=== PATIENT | female | born 1995 | race Caucasian/White ===

== ENCOUNTER 2020-11-03 03:38 | Inpatient (IN) | payer OTHER ==
[2020-11-03] VITALS (24 sets, daily range): BP systolic 90–181; BP diastolic 51–88; PULSE 68–126; TEMP 97.9–99.1
[~2020-11-03] VITALS: Ht 172.7 cm; Wt 105.9 kg
--- NOTE | 2020-11-03 03:26 | NUR ---
Ambulatory to unit for assessment of ?SROM, accompanied by spouse. Pt reports "my water broke @ 0200". Oriented to room, monitor, plan of care.
[2020-11-03 05:01] LABS: BASO % 0.3 % (0.0-2.0); EOS % 0.3 % (0-4.0); GRAN # 5.3 (1.4-6.5); GRAN % 67.4 % (42.2-75.2); HEMOGLOBIN 12.6 g/dl (12.5-16.0); LYMPH # 1.8 (1.2-3.4); LYMPH % 22.9 % (20.0-51.0); MEAN CELL VOLUME 87 fl (80.0-100.0); MEAN CORPUSCULAR HEMOGLOBIN 30 pg (27.0-31.0); MEAN CORPUSCULAR HGB CONC 34 g/dl (33.0-37.0); MEAN PLATELET VOLUME 10.7 fl (7.4-10.4); MONO # 0.7 (0.1-0.6); MONO % 8.6 % (1.7-9.3); PLATELET COUNT 257 K/mm3 (130-400); RED BLOOD COUNT 4.21 M/mm3 (4.10-5.30); REDCELL DISTRIBUTION WIDTH-CV 13.3 % (11.5-14.5)
[2020-11-03 05:02] LABS: HEMATOCRIT 36.7 % (37.0-47.0)
--- NOTE | 2020-11-03 06:25 | NUR ---
Nikhil RN gives report and This RN at bedside and patient back on monitors at this time. Patient resting and has no needs at this time. 0655: Patient off monitors to ambulate at this time. Dr. Matos at nurses station and updating Roles on this patient. 0745: Patient back on monitors. Wedged left with peanut ball in place. 0830: Roles at bedside and assessing patient and FHR strip. Plan of care discussed. SVE per physician 4-5//-2 and no new orders given.
--- NOTE | 2020-11-03 09:20 | NUR ---
Patient back on monitors. 0952: Patient off monitors to ambulate. 1047: Patient back on monitors for intermittent monitoring. 1126: Patient off monitors to ambulate/sit on birthing ball. 1225: Roles at bedside evaluating patient and FHR strip. SVE-5//-2 and plan of care discussed. No new orders at this time. 1255: Patient off monitors for ambulation. 1357: Patient back on monitors. SVE-6-7//-1 1416: Patient off monitors for ambulation and birthing ball. 1457: Patient back on monitors. 1520: Patient off monitors for ambulation/birthing ball. 1605: SVE-8//-1 and patient back on birthing ball. 1630: Patient feeling more pressure. SVE 8//-1 and off monitors to void/ambulate.
[2020-11-03] MEDS ORDERED: PRENATAL TABLET PO (16:09)
[2020-11-03] MEDS ORDERED: BENADRYL25 M2 PO (16:09)
[2020-11-03] MEDS ORDERED: PROBIOTIC BLEN1 EACH PO (16:10)
[2020-11-03] MEDS ORDERED: CALCIUM 600MG+D1 TAB PO (16:10)
[2020-11-03] MEDS ORDERED: OMEGA-3 1000 MG1 CAP PO (16:10)
--- NOTE | 2020-11-03 18:00 | NUR ---
SVE-/-1 181: Patient back on monitor at this time. 182: Roles at bedside and SVE per physician /+2 and patient practice pushing. 1827: Pushing instructions discussed and patient begins to push with each contraction. Roles at nurses station. Bedside report given to Teresa RIOS at this time.
--- NOTE | 2020-11-03 18:30 | NUR ---
Report recieved from Shalom RIOS. This RN continues pushing with pt. Questions answered. remains at nurses station reviewing FHR strip. 1911: at nurses station and requested for delivery. Pt prepped for delivery and repositioned to footplates. Pt continues pushing with . 1918: Pulse ox applied to mom to verify FHTs. Audible FHR 130BPM, moms heart rate 120s. reviewes FHR strip at pts bedside. 1928: Spontaneous vaginal delivery of viable male by . to mothers chest where dried and stimulated by nursery RN. Pt requesting prolonged cord clamping. Care of infant assummed by Julian RIOS. 1933: Cord clamped X2 and cut by FOB. Straight Cath completed due to increased bleeding. 1937: Spontaneous delivery of intact placenta by . Pitocin started at 333mus/hr per protocol. Fundal message completed by provider. Lidocaine administered by provider to repair tear. Second degree laceration repaired by . 1941: Increased bleeding noted during repair. Methergine explained and administered per orders. 1954: Repair completed and pericare provided. Ice pack applied and pt repositoined in bed. Plan of care and safety precautions explained. Questions answered. Call light within reach.
[2020-11-04 03:15] VITALS: BP 126/69; PULSE 114; TEMP 98.1
[2020-11-04 07:23] VITALS: BP 125/54; PULSE 102; TEMP 98.7
--- NOTE | 2020-11-04 10:15 | NUR ---
Initial visit attempt; Family resting, Nuclear Equipment Sales Engineer left card of congratulations and God's blessings for the of their son and information regarding the availability of spiritual care at [place].
[2020-11-04 11:00] VITALS: BP 124/68; PULSE 88; TEMP 98.3
[2020-11-04 15:14] VITALS: BP 118/72; PULSE 98; TEMP 98.6
--- NOTE | 2020-11-04 15:31 | NUR ---
Reviewed COVID19 test with patient, patient refuses test.
[2020-11-04 22:00] VITALS: BP 122/65; PULSE 94; TEMP 97.5
[2020-11-05] MEDS ORDERED: IBU600 MG PO (08:30)
[2020-11-05 08:45] VITALS: BP 122/69; PULSE 101; TEMP 97.6
== END 2020-11-05 11:20 | disposition home or self-care (01) | DRG 806 ==
LOC: LDRO 03:38 → LDR 03:42 → OB 03:42
PROVIDERS: ADMIT Obstetrics & Gynecology
PROC: 10E0XZZ Delivery of Products of Conception, External Approach (ICD-10-PCS; principal; 2020-11-03)
PROC: 0KQM0ZZ Repair Perineum Muscle, Open Approach (ICD-10-PCS; 2020-11-03)
DX: O70.1 Second degree perineal laceration during delivery (principal); O72.1 Other immediate postpartum hemorrhage; Z37.0 Single live birth; Z3A.39 39 weeks gestation of pregnancy
CPT/HCPCS: J2210; J2590; J7120

== ENCOUNTER 2022-01-21 15:56 | Inpatient (IN) | payer OTHER ==
[~2022-01-21] VITALS: Ht 167.6 cm; Wt 102.7 kg
[2022-01-21] VITALS (9 sets, daily range): BP systolic 112–124; BP diastolic 57–81; PULSE 68–122; TEMP 98.1–98.4
[~2022-01-21 15:56] MED LIST: BENADRYL25 M2 PO; CALCIUM 600MG+D1 TAB PO; IBU600 MG PO; OMEGA-3 1000 MG1 CAP PO; PRENATAL TABLET PO; PROBIOTIC BLEN1 EACH PO
[2022-01-21 16:29] LABS: BASO % 0.2 % (0.0-2.0); GRAN # 9.4 K/mm3 (1.4-6.5); GRAN % 83.5 % (42.2-75.2); HEMATOCRIT 38.5 % (37.0-47.0); HEMOGLOBIN 13.1 g/dl (12.5-16.0); LYMPH # 1.1 K/mm3 (1.2-3.4); LYMPH % 9.4 % (20.0-51.0); MEAN CELL VOLUME 89 fl (80.0-100.0); MEAN CORPUSCULAR HEMOGLOBIN 30 pg (27-31); MEAN CORPUSCULAR HGB CONC 34 g/dl (33.0-37.0); MEAN PLATELET VOLUME 10.2 fl (7.4-10.4); MONO # 0.7 K/mm3 (0.1-0.6); MONO % 6.5 % (1.7-9.3); PLATELET COUNT 221 K/mm3 (130-400); RED BLOOD COUNT 4.33 M/mm3 (4.10-5.30)
--- NOTE | 2022-01-21 16:37 | NUR ---
1600- Pt arrives on unit ambulatory with complaints of coontractions and cramping. Pt changes into gown. 1605- Pt into bed, EFM and TOCO on and tracing. Pt denies LOF. +FM per Pt. States she has had some bloody show this afternoon. States she started contracing around lunch time. VSS 1612- SVE by this RN, AL with bulging bag. 1613- Roderick.Sean RN at bedside, SVE to confirm, AL with bulging bag. Dr Constantino called and notified of Pt and her iminent delivery. coming to hospital now. Routine labor orders given TORB. IV started, labs obtained. 1627- Roles at bedside, SVE completed/+2 with bulging bag. Pt wishes to SROM on her own. Pt encouraged to push with UCs. Bhargavi, nursery RN to bedside. Pt and room prepped for delivery. Dr Constantino remains at bedside. 1631- SROM, clear, odorless fluid noted. Pt continues pushing with UCs. 1637- of viable female infant. To mother's abd where tended to by nursery RN. Delayed cord clamping then cord clamped and cut. placed S2S with mother. Cord blood obtained. 1644- Straight cath by with Дмитрий Galan. 1648- Spontaneous delivery of placenta, Pitocin started at 333ml/hr. Fundus massaged to firm by . Repair completed, see MD delivery note. Pericare completed. Clean chux and ice pack to perineum. Pt assisted to high fowlers, tolerated well.
[2022-01-21] MEDS ORDERED: NATURAL IRON65 MG (17:19)
[2022-01-21] MEDS ORDERED: MAG-G500 MG (17:20)
[2022-01-22 01:09] VITALS: BP 118/67; PULSE 87; TEMP 98.6
[2022-01-22 04:15] VITALS: BP 111/68; PULSE 82; TEMP 98.6
[2022-01-22] MEDS ORDERED: IBU800 M1 PO (07:51)
[2022-01-22 09:00] VITALS: BP 118/62; PULSE 83; TEMP 98
--- NOTE | 2022-01-22 09:55 | NUR ---
Initial visit; Parents thanked Semiconductor Processing Technician for looking in on them and offering congratulations and God's blessings for the of their daughter. Semiconductor Processing Technician thanked family for choosing [facility]. They stated they have had a great experience at our hospital.
[2022-01-22 15:00] VITALS: BP 89/51; PULSE 65
--- NOTE | 2022-01-22 17:45 | NUR ---
Discharge instructions and follow up care reviewed with pt and at the bedside. Both verbalized an understanding, agreed with the plan and states no questions or concerns at this time.
== END 2022-01-22 18:15 | disposition home or self-care (01) | DRG 807 ==
LOC: LDRO 15:56 → LDR 16:15 → OB 16:15
PROVIDERS: ADMIT Obstetrics & Gynecology
PROC: 10E0XZZ Delivery of Products of Conception, External Approach (ICD-10-PCS; principal; 2022-01-21)
PROC: 0KQM0ZZ Repair Perineum Muscle, Open Approach (ICD-10-PCS; 2022-01-21)
DX: O70.1 Second degree perineal laceration during delivery (principal); Z37.0 Single live birth; Z3A.39 39 weeks gestation of pregnancy
CPT/HCPCS: J2590; J7120